=== PATIENT | female | born 1985 | race Asian ===

== ENCOUNTER 2017-11-08 13:09 | Inpatient (IN) | payer OTHER ==
[~2017-11-08] VITALS: Ht 170.2 cm; Wt 82.6 kg
[2017-11-08] MEDS ORDERED: METHYLERGONOVINE 0.2 MG/ML AMP IM PRN (13:50)
[2017-11-08] MEDS ORDERED: OXYTOCIN 10 UNITS/ML VIAL IM SCH (13:50)
[2017-11-08] MEDS ORDERED: NALBUPHINE HYDROCHLORIDE 10 MG/ML VIAL IVP PRN (13:50)
[2017-11-08] MEDS ORDERED: CARBOPROST 250 MCG/ML AMP IM PRN (13:50)
[2017-11-08] MEDS ORDERED: MISOPROSTOL 25 MCG TAB VG PRN (13:59)
[2017-11-08 14:25] LABS: BASOPHILS # (AUTO) 0.1 K/uL (0.00-0.22); BASOPHILS % (AUTO) 0.9 % (0.0-2.0); EOSINOPHILS # (AUTO) 0.1 K/uL (0-0.4); EOSINOPHILS % (AUTO) 0.9 % (0.0-4.0); HEMATOCRIT 35.7 % (36-48); HEMOGLOBIN 12.4 g/dL (12.0-16.0); LYMPHOCYTES # (AUTO) 1.3 K/uL (2.5-16.5); LYMPHOCYTES % (AUTO) 16.7 % (20.5-51.1); MEAN CORPUSCULAR HEMOGLOBIN 32 pg (27-31); MEAN CORPUSCULAR HGB CONC 35 g/dL (33-37); MEAN CORPUSCULAR VOLUME 93 fL (80-94); MONOCYTES # (AUTO) 0.4 K/uL (0.8-1.0); MONOCYTES % (AUTO) 5.6 % (1.7-9.3); NEUTROPHILS # (AUTO) 5.7 K/uL (1.8-7.7); NEUTROPHILS % (AUTO) 75.9 % (42.2-75.2); PLATELET COUNT (AUTO) 169 K/uL (140-450); RED BLOOD CELL COUNT(AUTO) 3.82 MIL/uL (4.20-5.40); RED CELL DISTRIBUTION WIDTH 14.1 % (11.6-13.7); WHITE BLOOD COUNT (AUTO) 7.6 K/uL (4.8-10.8)
[2017-11-08 14:26] VITALS: BP 127/59
[2017-11-08 14:40] LABS: ANION GAP 16.6 (8-16); CARBON DIOXIDE 20.8 mmol/L (21-32); CREATININE 0.7 mg/dL (0.6-1.3); POTASSIUM 3.4 mmol/L (3.5-5.1)
[2017-11-08 14:46] LABS: ALBUMIN 2.7 g/dL (3.4-5.0); TOTAL BILIRUBIN 0.3 mg/dL (0.0-1.0)
[2017-11-08] MEDS: LACTATED RINGERS 1,000 ML IV SCH (15:04)
[2017-11-08] MEDS ORDERED: MISOPROSTOL 25 MCG TAB ONE ×2 (15:33→21:59)
[2017-11-08 17:16] LABS: BILIRUBIN,URINE NEGATIVE (NEGATIVE); BLOOD, URINE NEGATIVE (NEGATIVE); COLOR,URINE YELLOW (YELLOW); LEUKOCYTE ESTERASE ,URINE 1+ (NEGATIVE); NITRITE, URINE NEGATIVE (NEGATIVE); UGLUCOSE 2+ (NEGATIVE)
[2017-11-08 17:23] LABS: APPEARANCE,URINE HAZY (CLEAR)
[2017-11-08 17:30] LABS: RBC,URINE 0-5 (RARE) /HPF (0-5); WBC,URINE 6-15 (FEW) /HPF (0-5)
[2017-11-09] MEDS ORDERED: MISOPROSTOL 25 MCG TAB ONE (03:34)
[2017-11-09] MEDS: LACTATED RINGERS 1,000 ML IV SCH ×3 (06:00→19:04)
--- NOTE | 2017-11-09 08:50 | NUR ---
PATIENT HAS BEEN SCREENED AND CATEGORIZED LOW NUTRITION RISK. PATIENT WILL BE SEEN WITHIN 7 DAYS OF ADMISSION. 11/14/[address]
[2017-11-09] MEDS ORDERED: BUPIVACAINE 0.125%/NS PREMIX 250 ML ONE (09:01)
[2017-11-09] MEDS ORDERED: OXYTOCIN 20 UNITS in LACTATED RINGERS 1,000 ML IV SCH (11:25)
[2017-11-09] MEDS ORDERED: AMPICILLIN 2,000 MG in NACL 0.9% 100 ML IV SCH ×2 (16:05→20:00)
[2017-11-09] MEDS ORDERED: AMPICILLIN 2,000 MG VIAL ONE (16:13)
[2017-11-09] MEDS ORDERED: AMPICILLIN 1,000 MG VIAL ONE ×2 (16:17→20:03)
[2017-11-09] MEDS ORDERED: NALBUPHINE HYDROCHLORIDE 10 MG/ML VIAL ONE (20:52)
[2017-11-09] MEDS ORDERED: PROMETHAZINE 25 MG/ML VIAL ONE (20:53)
[2017-11-09] MEDS ORDERED: OXYTOCIN 10 UNITS/ML VIAL ONE (21:05)
[2017-11-09] MEDS ORDERED: LIDOCAINE MPF 1% - **ER/OR** 10 ML ONE (21:10)
[2017-11-09] MEDS ORDERED: TEMAZEPAM 15 MG CAP PO PRN (22:10)
[2017-11-09] MEDS ORDERED: oxyCODONE/APAP 5/325 MG 1 TAB TAB PO PRN (22:10)
[2017-11-09] MEDS ORDERED: MEASLES, MUMPS, AND RUBELLA 1 VIAL SQVAC PRN (22:10)
[2017-11-09] MEDS ORDERED: METHYLERGONOVINE 0.2 MG/ML AMP IM PRN (22:10)
[2017-11-09] MEDS ORDERED: HYDROcodone/APAP 5/325 MG 1 TAB TAB PO PRN (22:10)
[2017-11-09] MEDS ORDERED: OXYTOCIN 10 UNITS/ML VIAL IM PRN (22:10)
[2017-11-09] MEDS ORDERED: BENZOCAINE/MENTHOL 20%-0.5% 60 GM CAN TP PRN (22:10)
[2017-11-09] MEDS ORDERED: IBUPROFEN 800 MG TAB PO PRN (22:10)
[2017-11-10 06:58] LABS: HEMATOCRIT 30.4 % (36-48); HEMOGLOBIN 10.4 g/dL (12.0-16.0)
[2017-11-10] MEDS ORDERED: DOCUSATE SOD/SENNA 50/8.6 MG 1 TAB PO SCH (21:00)
== END 2017-11-11 16:30 | disposition home or self-care (01) | DRG 775 ==
LOC: MFCC 13:09 → MLD 18:12 → MFCC 11-10 00:45
PROVIDERS: ADMIT Obstetrics & Gynecology; ATTEND Obstetrics & Gynecology
PROC: 10E0XZZ Delivery of Products of Conception, External Approach (ICD-10-PCS; principal; 2017-11-09)
PROC: 10907ZC Drainage of Amniotic Fluid, Therapeutic from Products of Conception, Via Natural or Artificial Opening (ICD-10-PCS; 2017-11-09)
PROC: 0W8NXZZ Division of Female Perineum, External Approach (ICD-10-PCS; 2017-11-09)
PROC: 00HU33Z Insertion of Infusion Device into Spinal Canal, Percutaneous Approach (ICD-10-PCS; 2017-11-09)
PROC: 3E0R3BZ Introduction of Anesthetic Agent into Spinal Canal, Percutaneous Approach (ICD-10-PCS; 2017-11-09)
DX: O80 Encounter for full-term uncomplicated delivery (principal); Z37.0 Single live birth; Z3A.39 39 weeks gestation of pregnancy
CPT/HCPCS: 36415; 51702; 59200; 59409; 80053; 81001; 85018; 85025; 86592; 86886; 86900; 86901; 87086; J0290; J2001; J2300; J2550; J2590; J3490; J7120